=== PATIENT | male | born 1955 | race Caucasian/White ===

== ENCOUNTER 2021-08-25 20:59 | Emergency (ER) | payer BC, OTHER ==
[2021-08-25] MEDS ORDERED: ALPRAZolam 1 MG TAB PO STA (21:10)
--- NOTE | 2021-08-25 21:11 | ED ---
General Adult HPI - General Chief complaint: Recheck/Abnormal Lab/Rx Stated complaint: Abnormal Labs Time Seen by Provider: 08/25/21 21:00 Source: patient Mode of arrival: ambulatory - History of Present Illness Initial comments: 66-year-old male with past medical history of diabetes, hypertension, hyperlipidemia presents to the emergency department with possible low hemoglobin . He is escorted to the ER by Dr. Hall who is his primary care physician. Dr. Hall reports that he was seen in office for generalized abdominal discomfort weakness. He did perform labs. He received a call tonight that the patient's hemoglobin was low. He attempted to call the patient and have him come into the emergency department for further evaluation. Patient was refusing to seek treatment unless Dr. Hall met him at the hospital. Dr. Hall does present to the hospital and introduces the patient to me. Patient refuses to answer most of my questioning. Denies having any black or bloody stools. Remainder of the HPI is limited due to this - Related Data Home Medications Medication Instructions Recorded Confirmed Naproxen 500 mg PO BID 07/23/14 08/25/21 Sertraline [Zoloft] 100 mg PO DAILY 07/23/14 08/25/21 sitaGLIPtin [Januvia] 100 mg PO DAILY 07/23/14 08/25/21 Empagliflozin [Jardiance] 25 mg PO DAILY 08/25/21 08/25/21 Pioglitazone [Actos] 45 mg PO DAILY 08/25/21 08/25/21 Simvastatin [Zocor] 80 mg PO DAILY 08/25/21 08/25/21 glipiZIDE XL [Glucotrol Xl] 5 mg PO DAILY 08/25/21 08/25/21 metFORMIN HCL [Glucophage] 1,000 mg PO BID 08/25/21 08/25/21 Allergies Allergy/AdvReac Type Severity Reaction Status Date / Time No Known Allergies Allergy Verified 08/25/21 21:07 Review of Systems ROS Statement: Those systems with pertinent positive or pertinent negative responses have been documented in the HPI. ROS Other: All systems not noted in ROS Statement are negative. Past Medical History Past Medical History: Diabetes Mellitus, Hyperlipidemia, Hypertension History of Any Multi-Drug Resistant Organisms: None Reported Additional Past Surgical History / Comment(s): wart removal off left eye, surgeries as a child but doesnt remember Past Anesthesia/Blood Transfusion Reactions: No Reported Reaction Past Psychological History: Anxiety Smoking Status: Never smoker Past Alcohol Use History: None Reported Past Drug Use History: None Reported - Past Family History Father Family Medical History: No Reported History General Exam Limitations: physical limitation (refusing to talk) General appearance: alert, in no apparent distress Head exam: Present: atraumatic, normocephalic, normal inspection Eye exam: Present: normal appearance, PERRL, EOMI. Absent: scleral icterus, conjunctival injection, periorbital swelling ENT exam: Present: normal exam, mucous membranes moist Respiratory exam: Present: normal lung sounds bilaterally. Absent: respiratory distress, wheezes, rales, rhonchi, stridor Cardiovascular Exam: Present: regular rate, normal rhythm, normal heart sounds. Absent: systolic murmur, diastolic murmur, rubs, gallop, clicks Neurological exam: Present: alert Psychiatric exam: Present: anxious, flat affect, other (refusing to answer most questions and participate in exam. paranoid by any questioning from er staff - does trust Dr. Hall) Course Vital Signs 08/25/21 08/25/21 08/25/21 21:00 23:30 23:40 Temperature 97.4 F L 98.7 F 98.4 F Pulse Rate 93 87 63 Respiratory 22 18 18 Rate Blood Pressure 133/82 145/87 134/66 O2 Sat by Pulse 88 L 95 99 Oximetry 08/26/21 08/26/21 08/26/21 00:10 01:07 01:48 Temperature 98.1 F 98.8 F 98.2 F Pulse Rate 67 67 69 Respiratory 18 18 18 Rate Blood Pressure 130/66 146/79 127/86 O2 Sat by Pulse 100 99 99 Oximetry Medical Decision Making - Medical Decision Making Upon arrival patient was placed into room 17. A thorough history and physical exam was performed. Laboratory studies are conducted which demonstrated a hemoglobin of 5.7. MCV 68. Patient is refusing to change into a gown. Patient refuses rectal exam. Did recommend transfusion of 2 units of blood. I did recommend hospital admission however the patient reports that he will not remain hospitalized. I did call and speak with Dr. Hall. Patient will be transfused 2 units and follow-up in his office on Monday for repeat laboratory draw. Patient is aware of the treatment plan. He does speak on the phone with Dr. Hall himself. Patient received one unit and wanted to leave. Benefits of second unit discussed and risks of not transfusing. Patient understood - he is alert and capable of making his own decisions. Patients brother does come to the hospital and the treatment provided as well as what was recommended was discussed with him. He does take his brother home and knows to follow up on Monday for further evaluation. - Lab Data Result diagrams: 08/25/21 21:40 08/25/21 21:40 Lab Results 08/25/21 08/25/21 08/25/21 Range/Units 21:40 21:40 21:40 WBC 4.5 (3.8-10.6) k/uL RBC 3.18 L (4.30-5.90) m/uL Hgb 5.7 L* (13.0-17.5) gm/dL Hct 21.6 L (39.0-53.0) % MCV 68.0 L (80.0-100.0) fL MCH 17.8 L (25.0-35.0) pg MCHC 26.2 L (31.0-37.0) g/dL RDW 16.1 H (11.5-15.5) % Plt Count 216 (150-450) k/uL MPV 10.5 Neutrophils % 66 % Lymphocytes % 22 % Monocytes % 6 % Eosinophils % 3 % Basophils % 1 % Neutrophils # 3.0 (1.3-7.7) k/uL Lymphocytes # 1.0 (1.0-4.8) k/uL Monocytes # 0.3 (0-1.0) k/uL Eosinophils # 0.1 (0-0.7) k/uL Basophils # 0.0 (0-0.2) k/uL Hypochromasia Marked Poikilocytosis Moderate Anisocytosis Slight Microcytosis Marked PT 11.0 (9.0-12.0) sec INR 1.0 (<1.2) APTT 21.8 L (22.0-30.0) sec Sodium 137 (137-145) mmol/L Potassium 3.4 L (3.5-5.1) mmol/L Chloride 103 (98-107) mmol/L Carbon Dioxide 24 (22-30) mmol/L Anion Gap 10 mmol/L BUN 15 (9-20) mg/dL Creatinine 0.78 (0.66-1.25) mg/dL Est GFR (CKD-EPI)AfAm >90 (>60 ml/min/1.73 sqM) Est GFR (CKD-EPI)NonAf >90 (>60 ml/min/1.73 sqM) Glucose 164 H (74-99) mg/dL Calcium 9.0 (8.4-10.2) mg/dL Total Bilirubin 0.6 (0.2-1.3) mg/dL AST 21 (17-59) U/L ALT 10 (4-49) U/L Alkaline Phosphatase 64 (38-126) U/L Troponin I (0.000-0.034) ng/mL Total Protein 7.3 (6.3-8.2) g/dL Albumin 3.8 (3.5-5.0) g/dL Lipase 115 (23-300) U/L Blood Type Blood Type Confirm Blood Type Recheck Bld Type Recheck Status Antibody Screen Crossmatch Spec Expiration Date 08/25/21 08/25/21 08/25/21 Range/Units 21:40 21:40 21:50 WBC (3.8-10.6) k/uL RBC (4.30-5.90) m/uL Hgb (13.0-17.5) gm/dL Hct (39.0-53.0) % MCV (80.0-100.0) fL MCH (25.0-35.0) pg MCHC (31.0-37.0) g/dL RDW (11.5-15.5) % Plt Count (150-450) k/uL MPV Neutrophils % % Lymphocytes % % Monocytes % % Eosinophils % % Basophils % % Neutrophils # (1.3-7.7) k/uL Lymphocytes # (1.0-4.8) k/uL Monocytes # (0-1.0) k/uL Eosinophils # (0-0.7) k/uL Basophils # (0-0.2) k/uL Hypochromasia Poikilocytosis Anisocytosis Microcytosis PT (9.0-12.0) sec INR (<1.2) APTT (22.0-30.0) sec Sodium (137-145) mmol/L Potassium (3.5-5.1) mmol/L Chloride (98-107) mmol/L Carbon Dioxide (22-30) mmol/L Anion Gap mmol/L BUN (9-20) mg/dL Creatinine (0.66-1.25) mg/dL Est GFR (CKD-EPI)AfAm (>60 ml/min/1.73 sqM) Est GFR (CKD-EPI)NonAf (>60 ml/min/1.73 sqM) Glucose (74-99) mg/dL Calcium (8.4-10.2) mg/dL Total Bilirubin (0.2-1.3) mg/dL AST (17-59) U/L ALT (4-49) U/L Alkaline Phosphatase (38-126) U/L Troponin I 0.030 (0.000-0.034) ng/mL Total Protein (6.3-8.2) g/dL Albumin (3.5-5.0) g/dL Lipase (23-300) U/L Blood Type A Positive Blood Type Confirm A Positive Blood Type Recheck No Previous Record Bld Type Recheck Status CABO Indicated Antibody Screen NEGATIVE Crossmatch See Detail Spec Expiration Date 08/28/20212339 Disposition Clinical Impression: Anemia Disposition: HOME SELF-CARE Condition: Undetermined Instructions (If sedation given, give patient instructions): Blood Transfusion (DC) Additional Instructions: I recommended hospital admission. You need to follow up with Dr. Hall on Monday to have your labs redrawn. Return to the ED for any new or worsening symptoms, or should you agree to hospital admission. Is patient prescribed a controlled substance at d/c from ED?: No Referrals: Van Hall MD [Primary Care Provider] - 1-2 days Time of Disposition: 23:40
[2021-08-25] MEDS ORDERED: LORazepam 2 MG/ML INJ IV STA (21:43)
[2021-08-25 22:04] LABS: Anisocytosis Slight; Basophils % (A) 1 %; Eosinophils # (A) 0.1 k/uL (0-0.7); Eosinophils % (A) 3 %; HCT 21.6 % (39.0-53.0); Hypochromasia Marked; Lymphocytes % (A) 22 %; MCH 17.8 pg (25.0-35.0); MCHC 26.2 g/dL (31.0-37.0); Mean Platelet Volume 10.5; Microcytosis Marked; Monocytes # (A) 0.3 k/uL (0-1.0); Monocytes % (A) 6 %; Neutrophils % (A) 66 %; Platelet Count 216 k/uL (150-450); Poikilocytosis Moderate; RBC 3.18 m/uL (4.30-5.90); RDW 16.1 % (11.5-15.5); WBC 4.5 k/uL (3.8-10.6)
[2021-08-25 22:16] LABS: ALT 10 U/L (4-49); AST 21 U/L (17-59); African American GFR (CKD) >90 (>60 ml/min/1.73 sqM); Albumin 3.8 g/dL (3.5-5.0); Alkaline Phosphatase 64 U/L (38-126); Anion Gap 10 mmol/L; Blood Urea Nitrogen 15 mg/dL (9-20); Carbon Dioxide 24 mmol/L (22-30); Chloride 103 mmol/L (98-107); Glucose 164 mg/dL (74-99); Lipase 115 U/L (23-300); Non-African American GFR(CKD) >90 (>60 ml/min/1.73 sqM); Potassium 3.4 mmol/L (3.5-5.1); Sodium 137 mmol/L (137-145); Total Bilirubin 0.6 mg/dL (0.2-1.3); Total Protein 7.3 g/dL (6.3-8.2)
[2021-08-25 22:20] LABS: HGB 5.7 gm/dL (13.0-17.5)
[2021-08-25 22:29] LABS: Partial Thromboplastin Time 21.8 sec (22.0-30.0)
[2021-08-25 23:38] VITALS: RESP 18
[2021-08-26 01:49] VITALS: BP 127/86; PULSE 69; TEMP 98.2
== END 2021-08-26 01:56 | disposition home or self-care (01) ==
LOC: EC 20:59
DX: D64.9 Anemia, unspecified (principal); E11.9 Type 2 diabetes mellitus without complications; E78.5 Hyperlipidemia, unspecified; I10 Essential (primary) hypertension; F41.9 Anxiety disorder, unspecified; Z79.84 Long term (current) use of oral hypoglycemic drugs; Z79.899 Other long term (current) drug therapy
CPT/HCPCS: 36415; 86900; 86901; 80053; 83690; 84484; 85025; 85610; 85730; 86850; 86920; 99284; 96374; P9016; J2060